=== PATIENT | female | born 1970 | race Caucasian/White ===

== ENCOUNTER 2019-08-27 14:11 | Emergency (ER) | payer BC ==
[~2019-08-27] VITALS: Ht 165.1 cm; Wt 63.0 kg
--- NOTE | 2019-08-27 14:24 | NUR ---
pt ambulatory to er bed 11. sent from urgent care to r/o dvt. c/o LLE pain. pt also requesting covid19 retest after testing positive 3 weeks ago. stable vitals. awaiting md carias.
--- NOTE | 2019-08-27 14:34 | NUR ---
dr colunga at bedside for eval.
--- NOTE | 2019-08-27 15:13 | NUR ---
COVID RESULT NEGATIVE
--- NOTE | 2019-08-27 15:15 | NUR ---
u/s tech at bedside for LLE duplex ultrasound.
--- NOTE | 2019-08-27 16:08 | NUR ---
Patient discharged to home in stable condition. Written and verbal after care instructions given. Patient verbalizes understanding of instruction.
[2019-08-27 16:09] VITALS: BP 115/84
== END 2019-08-27 16:09 | disposition home or self-care (01) ==
LOC: ER 14:18
DX: M79.10 Myalgia, unspecified site (principal); Z09 Encounter for follow-up examination after completed treatment for conditions other than malignant neoplasm; Z86.19 Personal history of other infectious and parasitic diseases
CPT/HCPCS: 93971-TC